=== PATIENT | female | born 1975 | race Caucasian/White ===

== ENCOUNTER → 2017-05-24 09:28 | Emergency (ER) | payer OTHER ==
[~2017-05-24 09:28] MED LIST: Iohexol 300* (CONTRAST) 10 ML SDV IV ONE
--- NOTE | 2017-05-24 11:38 | ED ---
Abdominal Pain/Female - HPI Summary HPI Summary: Pt here w/ upper ab pain. She's had epigastric pain for a while now suspected to be d/t chronic EE w/ very large ulceration recently ID'd on endoscopy exam with Dr. Drummond Thursday (see report for details). Report indicates pt had been taking NSAID's and these were d/c'd. She had been taking PPI but not treating EE so flovent was started. She also takes carafate. Feels these are helping epigastric pain however she's developed RUQ pain past 2 days - worse with drinking water but able to eat without difficulty (ie. pizza and salad last night). Nausea after endoscopy Thursday which she suspects was from medications for procedure - no nausea or vomiting since. Had a BM this morning - normal for her - no dark tarry stool, no hematochezia. NOTE: endoscopy report indicated oozing blood from ulcer. Bx taken - no results yet. Pt denies h/o anemia or abnormal bleeding. No known h/o IBS/IBD but brother has IBS. - History of Current Complaint Chief Complaint: EDAbdPain Stated Complaint: ABD PAIN Time Seen by Provider: 05/24/17 11:00 Hx Obtained From: Patient, Family/Fiberglass Insulation Installer - Hx Last Menstrual Period: pt states she no longer has periods Pain Intensity: 6 Allergies/Adverse Reactions: Allergies Allergy/AdvReac Type Severity Reaction Status Date / Time Penicillins Allergy Nausea Verified 05/24/17 09:39 Home Medications: Home Medications Fluticasone HFA 220 mcg(NF) [Flovent Hfa 220 Mcg(NF)] 4 puff INH BID 05/24/17 [ History Confirmed 05/24/17] Sucralfate SUSP (NF) [Carafate SUSP (NF)] 10 ml PO QID 05/24/17 [History Confirmed 05/24/17] PMH/Surg Hx/FS Hx/Imm Hx Previously Healthy: Yes Endocrine/Hematology History: Denies: Hx Anticoagulant Therapy, Hx Blood Disorders, Hx Diabetes, Hx Thyroid Disease Cardiovascular History: Denies: Hx Hypertension Respiratory History: Reports: Hx Asthma - allergy related Denies: Hx Chronic Obstructive Pulmonary Disease (COPD) GI History: Reports: Hx Gastroesophageal Reflux Disease, Hx Ulcer - esophagus, Other GI Disorders - Eosinophilic esophagitis Denies: Hx Cirrhosis, Hx Crohn's Disease, Hx Diverticulosis, Hx Gall Bladder Disease - Surgical History Surgery Procedure, Year, and Place: wisdom teeth Infectious Disease History: No Infectious Disease History: Denies: Hx Clostridium Difficile, Hx Hepatitis, Hx Human Immunodeficiency Virus (HIV), Hx of Known/Suspected MRSA, Hx Shingles, Hx Tuberculosis, Hx Known/ Suspected VRE, Hx Known/Suspected VRSA, History Other Infectious Disease, Traveled Outside the [place] in Last 30 Days - Family History Known Family History: Positive: None - Social History Alcohol Use: Weekly Alcohol Amount: couple of glasses a wine a week Substance Use Type: Reports: None Smoking Status (MU): Former Smoker Review of Systems Constitutional: Negative Negative: Fever, Chills, Fatigue ENT: Negative Negative: Sore Throat, Ear Ache, Nasal Discharge Cardiovascular: Negative Respiratory: Negative Negative: Shortness Of Breath, Cough Gastrointestinal: Other - see HPI Positive: no symptoms reported Musculoskeletal: Other - neck and back pain last week - lasted 4 days - took ibuprofen - pain gone now Skin: Negative Neurological: Negative Psychological: Normal All Other Systems Reviewed And Are Negative: Yes Physical Exam Triage Information Reviewed: Yes Vital Signs On Initial Exam: Initial Vitals Temp Pulse Resp BP Pulse Ox 97.5 F 75 14 124/73 99 05/24/17 09:37 05/24/17 09:37 05/24/17 09:37 05/24/17 09:37 05/24/17 09:37 Vital Signs Reviewed: Yes Appearance: Positive: Well-Appearing - lying on stretcher - appears mostly comfortable, Well-Nourished Skin: Positive: Warm, Dry - no jaundice Head/Face: Positive: Normal Head/Face Inspection Eyes: Positive: Normal, Conjunctiva Clear - anicteric sclera ENT: Positive: Hearing grossly normal, Pharynx normal - mucosa moist Respiratory/Lung Sounds: Positive: Clear to Auscultation, Breath Sounds Present. Negative: Rales, Rhonchi, Stridor, Wheezes Cardiovascular: Positive: Normal, RRR, S1, S2 Abdomen Description: Positive: No Organomegaly, Soft, McBurney's Point Tenderness, Other: - mild LUQ TTP, somewhat worse epigastric TTP - + RUQ TTP w/ Chen's sign. Negative: CVA Tenderness (R), CVA Tenderness (L), Distended, Guarding Bowel Sounds: Positive: Present Musculoskeletal: Positive: Normal, Strength/ROM Intact Neurological: Positive: Normal, Sensory/Motor Intact, Alert, Oriented to Person Place, Time, CN Intact II-III Psychiatric: Positive: Normal - concerned but calm and cooperative Diagnostics - Vital Signs Vital Signs Temp Pulse Resp BP Pulse Ox 05/24/17 10:30 75 106/68 97 05/24/17 10:02 70 96 05/24/17 10:00 100/70 05/24/17 09:37 97.5 F 75 14 124/73 99 - Laboratory Result Diagrams: 05/24/17 11:36 05/24/17 11:36 Lab Statement: Any lab studies that have been ordered have been reviewed, and results considered in the medical decision making process. Abdominal Pain Fem Course/Dx - Course Course Of Treatment: Spoke w/ Dr. Drummond after CT report returned along with labs - elevated LFT's w/o known cause - will check additional labs and U/S of liver, gallbladder. Labs and liver U/S are w/o acute pathology other than enlarged liver (20+ cm). Reviewed w/ Dr. Drummond. Although prevacid can cause adverse reaction of hepatic impairment, benefits outweight risks of continuing medication as ulcer is significant. Pt does report a 1 time dose of acetaminophen 650mg liquid which she took for Rt sided neck pain - wondering if this contributed as she never takes acetaminophen? Advised to avoid this here forth until cleared by GI. She will also drinks clears only for 24 hours and advance to soft foods only until cleared by GI. Will provide pain control w/ tramadol - pt requires liquid or powder form. Does not want to try here today - wants to try at home. Call tomorrow to schedule appt this week w/ GI - f/u labs at end of week. Return to ED if danger s/sx present - pt and agree w/ plan. - Diagnoses Provider Diagnoses: Hepatitis, Esophageal ulceration - Provider Notifications Discussed Care Of Patient With: Davin Drummond Discharge - Discharge Plan Condition: Stable Disposition: HOME Prescriptions: traMADol TAB* [Ultram*] 50 mg PO Q6HR PRN #20 tab MDD 4 PRN Reason: Pain Referrals: Davin Drummond MD [Medical Doctor] - Additional Instructions: You liver enzymes are elevated today - the cause of this is unknown however possible causes were discussed - prevacid, tylenol last week, autoimmune causes. It is important that you drink clears for the next 24 hours and soft foods until cleared by GI. Call tomorrow to schedule appointment this week. Continue all meds prescribed by GI unless instructed otherwise. *If you develop vomiting, diarrhea, fever, chest pain, back pain, shortness of breath, blood stools or dark/tarry stools, return to ED
[2017-05-24 11:57] LABS: Hematocrit 40 % (35-47); Hemoglobin 13.7 g/dl (12.0-16.0); Mean Corpuscular HGB Conc 34 g/dl (31-36); Mean Corpuscular Hemoglobin 30 pg (27-31); Mean Corpuscular Volume 86 fL (80-97); Mean Platelet Volume 9 um3 (7.4-10.4); Red Blood Count 4.64 10^6/ul (4.0-5.4); Red Cell Distribution Width 14 % (10.5-15); White Blood Count 11.6 10^3/ul (3.5-10.8)
[2017-05-24 12:00] LABS: Add Diff/Slide Review? Slide Review Added; Comments Flag Yes
[2017-05-24 12:14] LABS: Albumin 3.8 g/dL (3.2-5.2); Calcium 8.6 mg/dL (8.6-10.3); EGFR African American 112.4 (>60); EGFR Non-African American 87.4 (>60); Globulin 3.2 g/dL (2-4); Potassium 3.8 mmol/L (3.5-5.0); Total Bilirubin 0.6 mg/dL (0.2-1.0)
[2017-05-24 12:36] LABS: Neutrophil % 33 % (38-83); Reactive Lymph % 18 % (0-6)
[2017-05-24 12:37] LABS: Add Path Review? YES; EBV Response NO; RBC Morphology Normal (Normal)
[2017-05-24 12:40] LABS: Manual Entry Verification HAN0055
[2017-05-24 12:47] LABS: Mono Internal Control QC Line Present
--- NOTE | 2017-05-24 12:56 | RAD ---
CLINICAL HISTORY: Right upper quadrant pain, esophageal ulcer, status post endoscopy COMPARISON: None TECHNIQUE: Multiple contiguous axial CT scans were obtained of the abdomen and pelvis after the administration of intravenous contrast. Coronal and sagittal multiplanar reformations are submitted for review. Oral contrast was not administered. Delayed images were obtained through the abdomen and pelvis. FINDINGS: LUNG BASES: The lung bases are clear. LIVER: The liver is diffusely low in attenuation compared to the spleen. There are no focal hepatic parenchymal masses. Liver is at the upper limits of normal in size BILE DUCTS: There is no intrahepatic or extrahepatic biliary dilatation. GALLBLADDER: The gallbladder is normal, without pericholecystic inflammatory change. PANCREAS: The pancreas is normal, without mass or ductal dilatation. SPLEEN: The spleen is at the upper limits of normal in size. UPPER GI TRACT: Evaluation of the gastrointestinal tract is limited by incomplete gastric distention. The upper GI tract is unremarkable. SMALL BOWEL AND MESENTERY: The small bowel is normal in contour, course, and caliber. There is no obstruction or dilatation. COLON: The colon is normal in contour, course, caliber. There is no pericolonic inflammatory change. ADRENALS: Normal bilaterally. KIDNEYS: The kidneys are normal in shape, size, contour, and axis. There is no hydronephrosis or nephrolithiasis. BLADDER: The bladder is collapsed and is not well evaluated. PELVIC ORGANS: The uterus is not visualized consistent with previous cystectomy.. Bilateral ovaries are identified. There is a small amount of simple fluid within the pelvic cul-de-sac. AORTA: The aorta is normal. IVC: Unremarkable LYMPH NODES: There is no lymphadenopathy by size criteria. ABDOMINAL WALL: There is no evidence for abdominal wall hernia. BONES AND SOFT TISSUES: Unremarkable OTHER: None IMPRESSION: SMALL AMOUNT OF FLUID WITHIN THE PELVIC CUL-DE-SAC. OTHERWISE UNREMARKABLE CT OF THE ABDOMEN AND PELVIS.
[2017-05-24 14:07] LABS: Urine Bacteria Absent (Absent); Urine Bilirubin Negative (Negative); Urine Glucose Negative (Negative); Urine Nitrite Negative (Negative)
[2017-05-24 14:13] LABS: C Reactive Protein 6.18 mg/L (< 5.00)
--- NOTE | 2017-05-24 14:47 | RAD ---
HISTORY: Right upper quadrant pain, elevated LFTs COMPARISONS: CT dated May 24, 2017 TECHNIQUE: Multiple transverse and longitudinal ultrasound images were obtained of the right upper quadrant of the abdomen using grayscale and color Doppler imaging. FINDINGS: LIVER: The liver measures 20.5 cm in long axis. There is normal hepatopedal flow of the portal vein on Doppler imaging. BILIARY TREE: There is no intrahepatic or extrahepatic biliary dilatation. The common duct measures 0.4 cm. GALLBLADDER: The gallbladder is well-visualized. There is no cholelithiasis, gallbladder wall thickening, pericholecystic fluid, or sonographic Chen sign. PANCREAS: The head of the pancreas is unremarkable. The tail of the pancreas is not well visualized secondary to overlying bowel gas. RIGHT KIDNEY: The right kidney is normal in shape, size, contour, and echogenicity. There is no hydronephrosis or nephrolithiasis. The right kidney measures 11.1 x 5 x 4.3 cm. AORTA AND IVC: The aorta and IVC are unremarkable. FLUID: There are no pleural effusions. There is no free fluid within the hepatorenal recess. OTHER FINDINGS: None. IMPRESSION: HEPATOMEGALY. STATUS POST CHOLECYSTECTOMY.
[2017-05-24 16:24] VITALS: BP 101/74
== END | disposition home or self-care (01) ==
LOC: ED 09:28
DX: R10.13 Epigastric pain (principal); K75.9 Inflammatory liver disease, unspecified; K22.10 Ulcer of esophagus without bleeding
CPT/HCPCS: 36415; 74177; 76705; 80053; 80074; 81003; 81015; 82150; 83690; 85025; 85060; 85610; 85730; 86140; 86308; 86705; 86850; 86900; 86901; 99283; Q9967

== ENCOUNTER 2018-04-19 10:03 | Emergency (ER) | payer OTHER ==
[2018-04-19 10:12] VITALS: BP 131/78
--- NOTE | 2018-04-19 10:55 | UC ---
Minor Trauma HPI - HPI Summary HPI Summary: This pt is a 42 y/o female presenting to [facility] c/o bilateral knee pain since this morning s/p fall today at 08:00. Pt reports she was holding her 35 lbs 2 year old daughter when she tripped over a wire across the floor and fell. She subsequently fell on her knees hitting her knees on the floor and currently c/o L > R knee pain. She took Tylenol at 08:30 today and has used ice since fall with minimal relief. Denies head strike or LOC. No neck pain, chest pain, SOB, numbness or tingling in LE, hip pain. no h.o knee problems. no other injuries Allergic to Penicillin, has GI symptoms. Pt's tetanus shot is UTD. Pt has hx esophagus ulcer and can't take NSAIDs. Patients medication reviewed this visit. - History of Current Complaint Chief Complaint: UCLowerExtremity Stated Complaint: KNEE PAIN Time Seen by Provider: 04/19/18 10:52 Hx Obtained From: Patient Hx Last Menstrual Period: 2 wks ago Onset/Duration: Lasting Hours, Still Present Onset Of Pain: Immediate Severity Currently: Moderate Pain Intensity: 8 Pain Scale Used: 0-10 Numeric Mechanism Of Injury: Direct Blow, Fall From A Standing Position Aggravating Factor(s): Nothing Alleviating Factor(s): Nothing Associated Signs And Symptoms: Negative: Loss Of Consciousness, Swelling - Allergies/Home Medications Allergies/Adverse Reactions: Allergies Allergy/AdvReac Type Severity Reaction Status Date / Time Penicillins Allergy Nausea Verified 04/19/18 10:13 PMH/Surg Hx/FS Hx/Imm Hx - Additional Past Medical History Additional PMH: PMHx: esophagus ulcer Previously Healthy: Yes Other Endocrine History: DENIES: diabetes Other Cardiovascular History: DENIES: HTN Respiratory History: Asthma Other History Of: Negative For: Anticoagulant Therapy - Surgical History Surgical History: Yes Surgery Procedure, Year, and Place: wisdom teeth - Family History Known Family History: Negative: Cardiac Disease - Social History Alcohol Use: Weekly Alcohol Amount: couple of glasses a wine a week Substance Use Type: None Smoking Status (MU): Former Smoker When Did the Patient Quit Smoking/Using Tobacco: 6 yrs ago Review of Systems Constitutional: Negative Skin: Bruising, Other - abraison b/l knee, Eyes: Negative ENT: Negative Respiratory: Negative Cardiovascular: Negative Gastrointestinal: Negative Genitourinary: Negative Motor: Negative Neurovascular: Negative Musculoskeletal: Other: - POS: bilateral knee pain Neurological: Negative Psychological: Negative All Other Systems Reviewed And Are Negative: Yes Physical Exam - Summary Physical Exam Summary: Vital Signs Reviewed: Yes A+Ox3, no distress Eyes: Conjunctiva Clear ENT: Hearing grossly normal neck: supple Respiratory: Positive: No respiratory distress, No accessory muscle use Cardiovascular: skin color reflect adequate perfusion 2+ PT b/l Musculoskeletal Exam: no pain c/t/l/s + SLE b/l + pain left knee with SLE + TTP prox tibial left knee with direct palp. no crepitus + Flex/ext ankle + ecchymosis prox lateral tibia, lateral knee RLE; + flex/ext knee, ankle + ecchymosis medial aspect of patella no crepitus mild focal discomfort lateral patella no pain ankle. foot Neurological: Positive: Alert, ambulatory without difficulty Psychological: Positive: Normal Response To Family Skin: Positive: no rash, ecchymosis b/l legs as described above. non suturable abraison b/l patella and dorsum left foot no bleeding Triage Information Reviewed: Yes Vital Signs: Initial Vital Signs Temp 97.4 F 04/19/18 10:10 Pulse 72 04/19/18 10:10 Resp 18 04/19/18 10:10 BP 131/78 04/19/18 10:10 Pulse Ox 100 04/19/18 10:10 Diagnostics - Radiology Bilateral knee XR Xray Interpretation: No Acute Changes - IMPRESSION: No fracture or joint effusion is noted. There may be superficial soft tissue swelling superficial to the patella of the left knee. Dr. Griffin has reviewed this radiology report. Radiology Interpretation Completed By: Radiologist Re-Evaluation - Re-Evaluation First Eval Change: Improved - Pt states pain inproved with gen reviewed imaging wound care ice crutches APAP/T+C - precautions discussed thoroughly referral to orthopedics pt comfortable in agreement with plan has a ride Minor Trauma Course/Dx - Course Course Of Treatment: Patient was carrying her infant when she tripped over wire proximal and o'clock this morning. Patient with ecchymosis to both knees. Patient left knee worse than right. Patient left knee pain with palpation proximal tibia lateral aspect of the knee. Patient with mild discomfort medial aspect of right knee. Patient took Tylenol. Patient unable to take NSAIDs due to this esophageal irritation we'll apply ice. Check imaging. Reassess. Patient comfortable and agreement with plan. - Differential Dx/Diagnosis Provider Diagnoses: abraison. knee contusion. knee pain Discharge - Sign-Out/Discharge Documenting (check all that apply): Patient Departure - Discharge All imaging exams completed and their final reports reviewed: Yes - Discharge Plan Condition: Stable Disposition: HOME Prescriptions: Acetaminoph/Cod 120/12 mg LIQ* [Tylenol/Codeine 120/12 LIQ*] 10 ml PO Q6HR #50 ml MDD 40 Patient Education Materials: Abrasion (ED), Knee Pain (ED) Referrals: Forrest Fernandes MD [Medical Doctor] - (call tomorrow for a follow-up appointment this week) Tuan Rolon MD [Primary Care Provider] - Additional Instructions: -wear gen wrap for comfort and support -apply ice (20 min at a time) every 2-3 hours for the next 2 days -use crutches until you can walk normally without a limp -Elevate your leg - this will help with swelling and pain - Take Tylenol product (Tylenol or tylenol with codeine) every 6-8 hours for pain. Codeine is a narcotic. Do NOT drive, operate machinery, drink alcohol or primary child welfare counselor responsibility while taking codeine - okay to clean wounds with warm, soapy water daily -Contact the orthopedic provider to schedule a follow-up appointment next week. Contact your doctor or return with questions or concerns - Billing Disposition and Condition Condition: STABLE Disposition: Home - Attestation Statements Document Initiated by Garimaibe: Yes Documenting Scribe: Eugenie Arce Provider For Whom Jimenez is Documenting (Include Credential): Yaritza Griffin MD Scribe Attestation: Eugenie Hess, scribed for Yaritza Griffin MD on 04/19/18 at 1318. Scribe Documentation Reviewed: Yes Provider Attestation: The documentation as recorded by the Eugenie macias accurately reflects the service I personally performed and the decisions made by me, Yaritza Griffin MD
--- NOTE | 2018-04-19 12:42 | RAD ---
Indication: Fall, bilateral knee pain. AP standing view of both knees, lateral, patellofemoral and tunnel views of both knees demonstrate no fracture. No joint effusion is noted in either knee. Joint spaces all well-preserved. There may be some soft tissue swelling superficial to the patella in the left knee. IMPRESSION: No fracture or joint effusion is noted. There may be superficial soft tissue swelling superficial to the patella of the left knee.
== END 2018-04-19 12:50 | disposition home or self-care (01) ==
LOC: UCEAST 10:03
DX: S80.02XA Contusion of left knee, initial encounter (principal); S80.01XA Contusion of right knee, initial encounter; S80.212A Abrasion, left knee, initial encounter; S80.211A Abrasion, right knee, initial encounter; W01.0XXA Fall on same level from slipping, tripping and stumbling without subsequent striking against object, initial encounter; Y93.9 Activity, unspecified; Y92.9 Unspecified place or not applicable; M25.562 Pain in left knee; M25.561 Pain in right knee; Z88.0 Allergy status to penicillin; Z87.891 Personal history of nicotine dependence
CPT/HCPCS: 99213; G0463

== ENCOUNTER 2019-07-29 21:30 | Observation (INO) | payer OTHER ==
[2019-07-29] MEDS ORDERED: NS 0.9% 1000 ML** 1,000 ML IV ONE (21:48)
[2019-07-29] MEDS ORDERED: Morphine 4 MG/ML VIAL (1 ml) 4 MG/ML VIAL IV PRN (21:49)
[2019-07-29] MEDS ORDERED: Morphine 4 MG/ML VIAL (1 ml) 4 MG/ML VIAL IV ONE (21:49)
[2019-07-29] MEDS ORDERED: Ketorolac INJ* 30 MG/ML 1 ML VIAL IV PUSH ONE (21:49)
[2019-07-29] MEDS ORDERED: Ondansetron INJ* 2 MG/ML VIAL IV ONE (21:49)
--- NOTE | 2019-07-29 22:04 | ED ---
GI/ HPI - HPI Summary HPI Summary: Patient is a 44 y/o F w/ Hx of stomach ulcer presenting to [facility] with complaints of abdominal pain and N/V. Sx onset 07/28/19 evening and exacerbated the evening of 07/29/19 at around 1900 after dinner. Upon coming to ED, patient began to experience N/V. Pain has been constant. Initial pain is described as a discomfort. 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 Patient is followed by Dr. Drummond. She reports that she has received two upper GI endoscopies, which revealed stomach ulcer. Patient was placed on carafate and prilosec. She has had H.pylori testing done that was negative. Patient states that this current presentation of pain is similar to past episodes but notes that this is the first time the pain has been so severe. Home medications and allergies are reviewed. - History of Current Complaint Chief Complaint: EDAbdPain Time Seen by Provider: 07/29/19 21:42 Stated Complaint: ABD PAIN PER Hx Obtained From: Patient Hx Last Menstrual Period: 2 wks ago Onset/Duration: Started Hours Ago, Still Present Timing: Constant, Lasting Hours Severity: Severe Current Severity: Severe Pain Intensity: 10 Associated Signs and Symptoms: Positive: Nausea, Vomiting, Abdominal Pain - Allergy/Home Medications Allergies/Adverse Reactions: Allergies Allergy/AdvReac Type Severity Reaction Status Date / Time Penicillins Allergy Nausea Verified 07/29/19 22:13 PMH/Surg Hx/FS Hx/Imm Hx Endocrine/Hematology History: Denies: Hx Anticoagulant Therapy, Hx Blood Disorders, Hx Diabetes, Hx Thyroid Disease Cardiovascular History: Denies: Hx Hypertension, Hx Pacemaker/ICD Respiratory History: Reports: Hx Asthma - allergy related Denies: Hx Chronic Obstructive Pulmonary Disease (COPD) GI History: Reports: Hx Gastroesophageal Reflux Disease, Hx Ulcer - esophagus, Other GI Disorders - Eosinophilic esophagitis Denies: Hx Cirrhosis, Hx Crohn's Disease, Hx Diverticulosis, Hx Gall Bladder Disease History: Denies: Hx Dialysis, Hx Renal Disease Sensory History: Denies: Hx Hearing Aid Psychiatric History: Denies: Hx Panic Disorder - Surgical History Surgery Procedure, Year, and Place: WISDOM TEETH ;. ENDOSCOPY (NO POLYPS) ; Infectious Disease History: No Infectious Disease History: Denies: Hx Clostridium Difficile, Hx Hepatitis, Hx Human Immunodeficiency Virus (HIV), Hx of Known/Suspected MRSA, Hx Shingles, Hx Tuberculosis, Hx Known/ Suspected VRE, Hx Known/Suspected VRSA, History Other Infectious Disease, Traveled Outside the [place] in Last 30 Days - Family History Known Family History: Negative: Cardiac Disease - Social History Alcohol Use: Weekly Alcohol Amount: couple of glasses a wine a week Substance Use Type: Reports: None Smoking Status (MU): Former Smoker Review of Systems Negative: Fever - on vitals, temp is 98.3 F Positive: Abdominal Pain, Vomiting, Nausea All Other Systems Reviewed And Are Negative: Yes Physical Exam - Summary Physical Exam Summary: Appearance: Well-appearing, Well-nourished, in obvious discomfort, appears colicky. Skin: Warm, dry, no obvious rash Eyes: sclera anicteric, no conjunctival pallor ENT: mucous membranes moist, pharynx appears normal Neck: Supple, nontender Respiratory: Clear to auscultation, no signs of respiratory distress Cardiovascular: Normal S1, S2. No murmurs. Normal distal pulses in tibial and radial bilaterally. Abdomen: Soft, focal tenderness at RUQ towards epigastrium with some guarding, normal active bowel sounds present Musculoskeletal: Normal, Strength/ROM Intact Neurological: A&Ox3, awake and alert, mentation is normal, speech is fluent and appropriate Psychiatric: affect is normal, does not appear anxious or depressed Triage Information Reviewed: Yes Vital Signs On Initial Exam: Initial Vitals Temp Pulse Resp BP Pulse Ox 98.3 F 86 22 136/87 97 07/29/19 21:32 07/29/19 21:32 07/29/19 21:32 07/29/19 21:32 07/29/19 21:32 Vital Signs Reviewed: Yes Diagnostics - Vital Signs Vital Signs Temp Pulse Resp BP Pulse Ox 07/29/19 21:32 98.3 F 86 22 136/87 97 - Laboratory Result Diagrams: 07/30/19 05:07 07/30/19 05:08 Lab Statement: Any lab studies that have been ordered have been reviewed, and results considered in the medical decision making process. - CT CT ABD/PEL CT Interpretation Completed By: Radiologist Summary of CT Findings: IMPRESSION: 1. Mild hepatomegaly. 2. Slight pericholecystic induration which may reflect cholecystitis. No. gallstones are seen by CT. 3. Status post hysterectomy. 4. Otherwise negative CT abdomen/ pelvis. The stomach is within normal limits. and there is no free air. THIS REPORT WAS REVIEWED BY ED PHYSICIAN. - Ultrasound GALLBLADDER US Ultrasound Interpretation Completed By: Radiologist Summary of Ultrasound Findings: GALLBLADDER US IMPRESSION: 1. Mild hepatomegaly. 2. Borderline distended gallbladder with no gallstones and no wall thickening. 3. Otherwise negative right upper quadrant sonogram. No right hydronephrosis. THIS REPORT WAS REVIEWED BY ED PHYSICIAN. Re-Evaluation - Re-Evaluation First Eval Re-Evaluation Time: 11:53 Change: Improved Comment: Pain is improved, patient rates her pain 3/10 currently and characaterizes it as a discomfort. GIGU Course/Dx - Course Course Of Treatment: Patient is a 44 y/o F w/ Hx of stomach ulcer presenting to [facility] with complaints of abdominal pain and N/V. Sx onset 07/28/19 evening and exacerbated the evening of 07/29/19 at around 1900 after dinner. Upon coming to ED, patient began to experience N/V. Pain has been constant. Initial pain is described as a discomfort. 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 On exam, patient noted to be in obvious discomfort and colicky in appearance. There is focal tenderness at RUQ towards epigastrium with some guarding. Bloodwork was obtained and within normal limits with exception of WBC 16.1, absolute neuts 12.2, absolute monos 1.1, glucose 122, AST 46. UA showed 1+ ketones, 2+ blood, 2+ RBC, squamous epith cells. During ED course, patient received fluids, Zofran 8 mg IV , morphine 4 mg IV, toradol 10 mg IV. GALLBLADDER US IMPRESSION: 1. Mild hepatomegaly. 2. Borderline distended gallbladder with no gallstones and no wall thickening. 3. Otherwise negative right upper quadrant sonogram. No right hydronephrosis. CT ABD/PEL IMPRESSION: 1. Mild hepatomegaly. 2. Slight pericholecystic induration which may reflect cholecystitis. No. gallstones are seen by CT. 3. Status post hysterectomy. 4. Otherwise negative CT abdomen/ pelvis. The stomach is within normal limits. and there is no free air. 0252 - Patient's case was discussed with Dr. Oconnell. Hospitalist to be consulted. 0255 - Patient's case was dicussed with Dr. Gibson, Dr. Gibson accepts for admission. - Diagnoses Provider Diagnoses: Biliary colic, Right upper quadrant abdominal pain - Physician Notifications Discussed Care Of Patient With: Qamar Oconnell Time Discussed With Above Provider: 02:52 Instructed by Provider To: Other - 0252 - Patient's case was discussed with Dr. Oconnell. Hospitalist to be consulted. 0255 - Patient's case was dicussed with Dr. Gibson, Dr. Gibson accepts for admission. Discharge ED - Sign-Out/Discharge Documenting (check all that apply): Patient Departure - admit - Discharge Plan Condition: Improved Disposition: ADMITTED TO [facility] - Billing Disposition and Condition Condition: IMPROVED Disposition: Admitted to [facility] - Attestation Statements Document Initiated by Jimenez: Yes Documenting Scribe: TEJINDER YU Provider For Whom Jimenez is Documenting (Include Credential): VICK RUIZ MD Scribe Attestation: ITEJINDER, scribed for VICK RUIZ MD on 07/30/19 at 1907. Scribe Documentation Reviewed: Yes Provider Attestation: The documentation as recorded by the TEJINDER macias accurately reflects the service I personally performed and the decisions made by me, VICK RUIZ MD Status of Scribmaria victoria Document: Viewed
--- OUTSIDE RECORDS SUMMARY | 2019-07-29 22:05 | XMS REPORT | Continuity of Care Document ---
:1975 External Reference #:[id number] Author Name Tuan Rolon MD Address [address] [place] [address] Care Team Providers Name Role Phone Tuan Rolon MD FACP - Care Team Information [employer] [phone] Internal Medicine Davin Drummond MD - Care Team Information [employer] [phone] Gastroenterology Melani Lechuga MD - Obstetrics & Care Team Information [employer] [phone] Gynecology Problems Active Problems Provider Date Vitamin D deficiency Tuan Rolon MD Onset: 07/20/2018 Gastro-esophageal reflux disease with Tuan Rolon MD Onset: 02/02/2018 esophagitis Gastro-esophageal reflux disease with Tuan Rolon MD Onset: 06/22/2017 esophagitis Mild intermittent asthma Tuan Rolon MD Onset: 05/13/2017 Dysphagia Tuan Rolon MD Onset: 05/13/2017 Social History Type Date Description Comments Sex Unknown ETOH Use consumes 2-3 glasses of wine per week Tobacco Use Start: Unknown End: Patient is a former 1/2 PPD for 12 years smoker Exercise Does not exercise Type/Frequency Allergies, Adverse Reactions, Alerts Active Allergies Reaction Severity Comments Date Penicillin Nausea and Vomiting 05/05/2017 Medications Active Medications SIG Qnty Indications Ordering Date Provider Vitamin D3 2 chewables by mouth E55.9 Dickerson A 07/21/2019 1000Unit every day MD Gonzales Tablets Ventolin HFA take 2 puffs every 4 16gm R05 Dickerson A 08/17/1996 hours as needed for MD Gonzales 108(90Base) mcg/Act bronchospasm Aerosol Immunizations CPT Code Status Date Vaccine Lot # [id number] Given 06/14/2019 Influenza Vaccine Quadrivalent Preser/Antibiotic [id number] Free Im Use 53731 Given 05/14/2018 Influenza Virus Vaccine, Quadrivalent (Cciiv4), [id number] Derived From Cell 04642 Given 05/13/2017 Influenza Vaccine Quadrivalent Preser/Antibiotic [id number] Free Im Use 27562 Given 08/17/2011 Tdap-Tetanus, Diphtheria Toxoids/Acellular Pertussis Vaccine 7+ Vital Signs Date Vital Result Comment 07/21/2019 10:14am Body Temperature 98.9 F O2 % BldC Oximetry 99 % Heart Rate 82 /min BP Systolic 115 mmHg BP Diastolic 75 mmHg BMI (Body Mass Index) 31.5 kg/m2 Weight 172.00 lb Height 62 inches 5'2" 07/20/2018 9:31am Body Temperature 99.1 F O2 % BldC Oximetry 99 % Heart Rate 77 /min BP Systolic 100 mmHg BP Diastolic 75 mmHg BMI (Body Mass Index) 29.6 kg/m2 Weight 166.00 lb Height 62.75 inches 5'2.75" Results Description No Information Available Procedures Description No Information Available Medical Devices Description No Information Available Encounters Description No Information Available Assessments Date Code Description Provider 07/21/2019 Z00.01 Encounter for general adult medical Tuan Rolon MD examination with abnormal findings 07/21/2019 Z12.4 Encounter for screening for malignant Tuan Rolon MD neoplasm of cervix 07/21/2019 E55.9 Vitamin D deficiency, unspecified Tuan Rolon MD 06/14/2019 Z23 Encounter for immunization Tuan Rolon MD Plan of Treatment Future Appointment(s):07/23/2020 10:00 am - Tuan Rolon MD [facility]/21/2019 - Tuan Rolon MDZ00.01 Encounter for general adult medical examination with abnormal findingsComments:Normal physical examination for age. Age, sex and risk appropriate preventive care recommendations discussed with patient. Patient verbalized understanding. Lifestyle and dietary modifications advised. She has gained 16 lbs in past 3 years and was advised to change lifestyle and lose weight.Z12.4 Encounter for screening for malignant neoplasm of cervixComments:She is over due and she declined to have PAP.Advised to consult with [facility] OPERATOR. Referral order provided and she will decide in this regard.Referral:Melani Lechuga MD, vision rehabilitation therapist/Phys/KwncmO42.9 Vitamin D deficiency, unspecifiedNew Medication:Vitamin D3 1000 Unit - 2 chewables by mouth every dayComments:Educated with concerns.Lifestyle and dietary modifications advised. Medications related potential side effects, general precautions, follow up recommendations discussed with patient in detail. Patientverbalized understanding. Functional Status Description No Information Available Mental Status Description No Information Available Referrals Refer to Reason for Referral Status Appt Date Melani Lechuga MD Created [address] [place] [address] [phone]
[2019-07-29 22:07] LABS: ABS Basophils 0.1 10^3/ul (0-0.2); ABS Eosinophils 0.2 10^3/ul (0-0.6); ABS Lymphocytes 2.4 10^3/ul (1.0-4.8); ABS Monocytes 1.1 10^3/ul (0-0.8); ABS Neutrophils 12.2 10^3/ul (1.5-7.7); Eosinophil % 1.5 %; Hematocrit 38 % (35-47); Hemoglobin 13.1 g/dL (12.0-16.0); Lymphocyte % 15.2 %; Mean Corpuscular HGB Conc 34 g/dL (31-36); Mean Corpuscular Hemoglobin 30 pg (27-31); Mean Corpuscular Volume 88 fL (80-97); Mean Platelet Volume 9.2 fL (7.4-10.4); Platelet Count 271 10^3/uL (150-450); Red Blood Count 4.31 10^6 /uL (3.70-4.87); Red Cell Distribution Width 14 % (10-15); White Blood Count 16.1 10^3/uL (3.5-10.8)
[2019-07-29 22:24] LABS: ALT 25 U/L (7-52); AST 46 U/L (13-39); Albumin 4.2 g/dL (3.2-5.2); Albumin/Globulin Ratio 1.5 (1-3); Alkaline Phosphatase 60 U/L (34-104); Anion Gap 7 mmol/L (2-11); BUN/Creatinine Ratio 15.3 (8-20); Blood Urea Nitrogen 11 mg/dL (6-24); CO2 Carbon Dioxide 24 mmol/L (22-32); Calcium 9.2 mg/dL (8.6-10.3); Chloride 106 mmol/L (101-111); EGFR Non-African American 87.6 (>60); Globulin 2.8 g/dL (2-4); Glucose 122 mg/dL (70-100); Potassium 3.6 mmol/L (3.5-5.0); Sodium 137 mmol/L (135-145)
[2019-07-29 22:30] LABS: HCG Pregnancy < 0.60 mIU/mL
[2019-07-30 00:24] LABS: Urine Appearance Clear; Urine Bilirubin Negative (Negative); Urine Blood 2+ (Negative); Urine Color Yellow; Urine Glucose Negative (Negative); Urine Ketones 1+ (Negative); Urine Nitrite Negative (Negative); Urine Protein Negative (Negative); Urine Specific Gravity 1.016 (1.010-1.030); Urine Urobilinogen Negative (Negative)
[2019-07-30 00:26] LABS: Urine Bacteria Absent (Absent); Urine Red Blood Cell 2+(6-10/hpf) (Absent); Urine Squamous Epithelial Cell Present (Absent); Urine White Blood Cell Trace(0-5/hpf) (Absent)
[2019-07-30] MEDS ORDERED: Iohexol 300* (CONTRAST) 10 ML SDV IV ONE (00:48)
[2019-07-30] MEDS ORDERED: Morphine INJ* 2 MG/ML 1 ML SYRINGE (TWO MG - NEW SYRINGE VERSION) IV PRN (03:43)
[2019-07-30] MEDS ORDERED: NS 0.9% 1000 ML** 1,000 ML IV SCH (03:45)
[2019-07-30] MEDS ORDERED: Albuterol HFA INHALER* 8 gm MDI INH PRN (03:46)
[2019-07-30] MEDS ORDERED: Morphine INJ* 4 MG/ML 1 ML SYRINGE (NEW SYRINGE VERSION) IV PRN (04:18)
[2019-07-30] MEDS: Heparin VIAL(*) 5000 UNITS/ML VIAL (FIVE THOUSAND) SUBCUT SCH ×2 (05:10→13:17)
[2019-07-30 05:34] LABS: Albumin 3.7 g/dL (3.2-5.2); Albumin/Globulin Ratio 1.5 (1-3); BUN/Creatinine Ratio 11.9 (8-20); Calcium 8.4 mg/dL (8.6-10.3); EGFR African American 115.2 (>60); EGFR Non-African American 95.2 (>60); Globulin 2.5 g/dL (2-4); Potassium 3.8 mmol/L (3.5-5.0); Total Bilirubin 0.8 mg/dL (0.2-1.0); Total Protein 6.2 g/dL (6.4-8.9)
--- NOTE | 2019-07-30 07:30 | ADMNOTE ---
Subjective Interval History: 44 yo female with hx of peptic ulcers came in the hospital with complaints of RUQ pain which started after dinner last night. Pain progressed to the point she couldnt bear it and came to the ED. She had 1 episode of vomiting when she made it to the ER. Her vitals were stable. US was done which showed a slightly enlarged gallbladder but no stones. She had a CT abdomen which showed perichole induration concerning for cholecystitis. Pt has a hx of peptic ulcer disease that she had 2 endoscopies for which had revealed large ulcers. She said she was never told what caused these ulcers. 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 She see Dr. Drummond outpatient. She was recently put back on PPI because a few weeks ago, she was beginning to have some epigastric discomfort. Family History: Unchanged from Admission Social History: Unchanged from Admission Past Medical History: Unchanged from Admission Review of Systems - Measurements Intake and Output: Intake and Output Last 24 Hours 07/28/19 07/29/19 07/30/19 07/31/19 06:59 06:59 06:59 06:59 Intake Total 1000 Balance 1000 Weight 172 lb 6.4 oz Intake: IV Fluids 1000 Oral 0 Other: Estimated Void Medium # Voids 1 - Review of Systems Constitutional Symptoms: Negative: Weight Gain, Weight Loss, Weakness, Fatigue, Fever, Night Sweats, Unexplained Falls, Other Dermatology: Negative: Normal, Rash, Skin Lesions, Cancer, Skin Lumps, Other HEENT: Negative: Normal, Change in Hearing, Vertigo, Dental Problems, Tinnitus, Sinus Problem, Other Eyes: Negative: Normal, Change in Vision, Double Vision, Eye Pain, Glaucoma, Cataract, Contacts or Glasses, Other Thyroid: Negative: Normal, Goiter, Thyroid Nodule, Cold Intolerance, Heat Intolerance , Sweatiness, Tremor, Frequent Defecation, Constipation, Palpitations, Primary Hypothyroidism, Primary Hyperthyroidism, Weight Loss, Weight Gain, Change in Skin/Hair, Change in Menstruation, Radiation Exposure, Other Pulmonary: Negative: Normal, Cough, Sputum, Hemoptysis, Wheezing, Respiratory Distress, Shortness of Breath, COPD, Asthma, Exercise Intolerance, Home Oxygen, Other Cardiology: Negative: Normal, Chest Pain, Shortness of Breath, Palpitations, Swelling of Ankles, Peripheral Vascular Dis, Edema, Faintness, Syncope, Claudication, Proximal NocturnalDyspnea, Orthopnoea, Other Gastroenterology: Positive: Abdominal Pain, Nausea, Vomiting Negative: Normal, Anorexia, Indigestion, Difficulty Swallowing, Heartburn, Constipation, Diarrhea, Blood in Stools, Change in Bowel Habits, Haematemesis, Melena, Other Genital - Urinary: Negative: Normal, Dysuria, Hematuria, Polyuria, Nocturia, Other Genitourinay - Female: Negative: Menses Normal, Vaginal Discharge, Menopause, Dysmenorrhea, Other Musculoskeletal: Negative: Joint Pain, Joint Stiffness, Arthritis, Osteoporosis, Low Back Pain , Sciatica, Joint Deformities, Kyphoscoliosis, Other Endocrinology: Negative: Normal, Thyroid Problems, Adrenal Problems, Gonadal Problems, Family Hx Endocrine Disorders, Obesity, Diabetes Mellitus, Hyperglycemia, Hx Hypoglycemia, Diabetic Foot Ulcers, Calluses, Hirsutism, Menstrual Abnormalities , Polydipsia, Polyuria, Gonadal Problems, Gynecomastia, Pituitary disease, Other Hematologic/Lymphatic: Negative: Anemia, Easy Bruising, Hx Leukemia, Hx Lymphoma, Use of Anticoagulant, Use of Antiplatelet Drugs, Other Neurology: Negative: Normal, Headache, Migraines, Change in Vision, Diplopia, Dizziness , Change in Balancing, Change in Coordination, Change in Memory, Change in Speech, Change in Sphincter Function, Change in Walking, Numbness\Paresthesiae, Unexplained Weakness, Hx of Stroke\TIA, Hx of Seizures, Other Psychiatry: Negative: Normal, Depression, Anxiety, Depressed Mood, Anhedonia, Sexual Dysfunction, Weight Change, Guilt Feelings, Tearfulness, Unusual Fatigue, Unusual Anxiety, Suicidal Ideation, Hypomania, Eating Disorders, Other Allergic/Immunologic: Negative: Hx Anaphylaxis, Hx Angioedema, Hx Environmental, Hx Seasonal, Asthma, Hx HIV, Immunocompromise, Swollen Glands LymphNodes, Other Objective Active Medications: Albuterol (Ventolin Hfa Inhaler*) 2 puff INH Q4H PRN PRN Reason: SOB/WHEEZING Heparin Sodium (Porcine) (Heparin Vial(*)) 5,000 units SUBCUT Q8HR [facility] Last Admin: 07/30/19 05:10 Dose: Not Given Sodium Chloride (Ns 0.9% 1000 Ml) 1,000 mls @ 75 mls/hr IV PER RATE [facility] Last Admin: 07/30/19 05:11 Dose: 75 mls/hr Lansoprazole (Prevacid Solutab*) 30 mg PO DAILY [facility] Morphine Sulfate (Morphine Inj (Syringe))*) 2 mg IV Q4H PRN PRN Reason: PAIN - MILD Morphine Sulfate (Morphine Inj (Syringe)*) 4 mg IV Q1H PRN PRN Reason: PAIN - MODERATE Vital Signs - 8 hr 07/29/19 07/30/19 07/30/19 23:51 00:00 00:20 Temperature Pulse Rate 85 93 77 Respiratory Rate Blood Pressure 101/54 115/63 (mmHg) O2 Sat by Pulse 97 96 96 Oximetry 07/30/19 07/30/19 07/30/19 00:31 00:50 01:18 Temperature Pulse Rate 82 72 82 Respiratory Rate Blood Pressure 107/72 (mmHg) O2 Sat by Pulse 97 96 96 Oximetry 07/30/19 07/30/19 07/30/19 01:21 01:50 02:00 Temperature Pulse Rate 82 76 72 Respiratory Rate Blood Pressure 114/70 104/56 (mmHg) O2 Sat by Pulse 97 96 96 Oximetry 07/30/19 07/30/19 07/30/19 02:20 02:51 03:00 Temperature Pulse Rate 76 82 74 Respiratory Rate Blood Pressure 104/54 106/73 (mmHg) O2 Sat by Pulse 97 97 97 Oximetry 07/30/19 07/30/19 07/30/19 03:21 03:51 04:00 Temperature Pulse Rate 73 79 69 Respiratory Rate Blood Pressure 100/55 124/87 (mmHg) O2 Sat by Pulse 96 97 96 Oximetry 07/30/19 07/30/19 07/30/19 04:21 05:17 05:24 Temperature 97.8 F Pulse Rate 69 65 Respiratory 16 16 Rate Blood Pressure 106/69 102/59 (mmHg) O2 Sat by Pulse 96 97 Oximetry 07/30/19 05:25 Temperature 98.5 F Pulse Rate 69 Respiratory 16 Rate Blood Pressure 106/69 (mmHg) O2 Sat by Pulse 96 Oximetry Oxygen Devices in Use Now: None Appearance: not in distress Eyes: No Scleral Icterus, PERRLA Ears/Nose/Mouth/Throat: Mucous Membranes Moist Neck: NL Appearance and Movements; NL JVP, Trachea Midline Respiratory: Symmetrical Chest Expansion and Respiratory Effort, Clear to Auscultation, Clear to Percussion Cardiovascular: NL Sounds; No Murmurs; No JVD Abdominal: NL Sounds; No Tenderness; No Distention Extremities: No Edema Skin: No Rash or Ulcers, No Nodules or Sclerosis Neurological: Alert and Oriented x 3 Result Diagrams: 07/29/19 22:01 07/30/19 05:08 Assess/Plan/Problems-Billing Assessment: - Patient Problems (1) Right upper quadrant abdominal pain Current Visit: Yes Status: Acute Code(s): R10.11 - RIGHT UPPER QUADRANT PAIN SNOMED Code(s): 681863864 Comment: RUQ pain that clinically is concerning for either biliary colic or cholecystitis. US and CT abdomen not definitive Will get a HIDA scan team to consider calling GI (2) Full code status Current Visit: Yes Status: Acute Code(s): Z78.9 - OTHER SPECIFIED HEALTH STATUS SNOMED Code(s): 001718408 (3) DVT prophylaxis Current Visit: Yes Status: Acute Code(s): Z29.9 - ENCOUNTER FOR PROPHYLACTIC MEASURES, UNSPECIFIED SNOMED Code(s): 970875788 Comment: heparin (4) Peptic ulcer disease Current Visit: Yes Status: Acute Code(s): K27.9 - PEPTIC ULC, SITE UNSP, UNSP AC OR CHR, W/O HEMOR OR PERF SNOMED Code(s): 53603511 Comment: cont home PPI
[2019-07-30 08:59] LABS: ABS Basophils 0.1 10^3/ul (0-0.2); ABS Eosinophils 0.1 10^3/ul (0-0.6); ABS Lymphocytes 2.7 10^3/ul (1.0-4.8); ABS Monocytes 0.9 10^3/ul (0-0.8); ABS Neutrophils 9.9 10^3/ul (1.5-7.7); Eosinophil % 0.6 %; Hematocrit 35 % (35-47); Hemoglobin 12.2 g/dL (12.0-16.0); Lymphocyte % 19.6 %; Mean Corpuscular HGB Conc 34 g/dL (31-36); Mean Corpuscular Hemoglobin 30 pg (27-31); Mean Corpuscular Volume 89 fL (80-97); Platelet Count 262 10^3/uL (150-450); Red Cell Distribution Width 13 % (10-15); White Blood Count 13.6 10^3/uL (3.5-10.8)
[2019-07-30] MEDS ORDERED: Lansoprazole SOLUTAB* 30 MG PO SCH ×2 (09:00→21:00)
[2019-07-30] MEDS ORDERED: HYDROmorphone INJ* 0.5 MG/0.5 ML SYRINGE IV SLOW PU PRN (11:13)
[2019-07-30] MEDS ORDERED: Acetaminophen ADULT LIQ* 650 MG/20.3 ML UDC PO PRN (13:13)
--- NOTE | 2019-07-30 13:59 | PN ---
Subjective Date of Service: 07/30/19 Interval History: HD 2 on 07/30 44 y/o F with history of PUD presents with acute abdominal pain and vomiting. Found to have epigastric and RUQ tenderness, leucocytosis and mild AST elevation. Imaging negative for cholelithiasis; Ct shows mild cholecystitis. D/D - CHolecystitis, PUD, GERD No acute overnight events vitals stable; mild fever this morning patient was sitting comfortably in bed and was eager in going home. She denies abdominal pain, nausea and vomiting at present She says she would like to drink some water. Patient educated about ongoing medical issues and patient seems to understand Objective Active Medications: Acetaminophen (Tylenol Adult Liq*) 650 mg PO Q6H PRN PRN Reason: MILD PAIN or TEMP > 100.4 Last Admin: 07/30/19 13:20 Dose: 650 mg Albuterol (Ventolin Hfa Inhaler*) 2 puff INH Q4H PRN PRN Reason: SOB/WHEEZING Heparin Sodium (Porcine) (Heparin Vial(*)) 5,000 units SUBCUT Q8HR [facility] Last Admin: 07/30/19 13:17 Dose: Not Given Hydromorphone HCl (Dilaudid Inj*) 0.5 mg IV SLOW PU Q4H PRN PRN Reason: PAIN - MODERATE Sodium Chloride (Ns 0.9% 1000 Ml) 1,000 mls @ 75 mls/hr IV PER RATE [facility] Last Admin: 07/30/19 05:11 Dose: 75 mls/hr Lansoprazole (Prevacid Solutab*) 30 mg PO BEDTIME [facility] Vital Signs - 8 hr 07/30/19 07/30/19 07:15 11:15 Temperature 100.6 F 97.4 F Pulse Rate 76 76 Respiratory 18 18 Rate Blood Pressure 93/48 110/75 (mmHg) O2 Sat by Pulse 99 99 Oximetry Oxygen Devices in Use Now: None Exam: Appearance: Well-appearing, Well-nourished, not in acute distress Skin: Warm, dry, no obvious rash Eyes: sclera anicteric, no conjunctival pallor ENT: mucous membranes moist, pharynx appears normal Neck: Supple, nontender Respiratory: Clear to auscultation, no signs of respiratory distress Cardiovascular: Normal S1, S2. No murmurs. Normal distal pulses in tibial and radial bilaterally. Abdomen: Soft, focal tenderness at RUQ and epiastrium, No rebound tenderness and negative Chen sign. normal active bowel sounds present Musculoskeletal: Normal, Strength/ROM Intact Neurological: A&Ox3, awake and alert, mentation is normal, speech is fluent and appropriate Psychiatric: affect is normal, does not appear anxious or depressed Result Diagrams: 07/30/19 05:07 07/30/19 05:08 Assess/Plan/Problems-Billing Assessment: 44 y/o F with history of PUD presents with acute abdominal pain and vomiting. Found to have epigastric and RUQ tenderness, leucocytosis and mild AST elevation. Imaging negative for cholelithiasis; Ct shows mild cholecystitis. D/D - CHolecystitis, PUD, GERD. HIDA scan negative for cholecystitis. - Patient Problems (1) Abdominal pain Current Visit: Yes Status: Acute Code(s): R10.9 - UNSPECIFIED ABDOMINAL PAIN SNOMED Code(s): 34460145 Comment: -has epigastric discomfort for more than a month- seeing Dr. Drummond for PUD. improved after PPI and Carafete. 1 week ago again developed pain and started taking PPI again but without much relief. Yesterday started having acute pain after dinner which was constant in nature and aching type. associated with 1 episode of vomiting. -has mild tenderness on RUQ and epigastrium; no chen sign -could be from PUD or cholecystitis. -lipase negative. -US, Ct and HIDA negative for cholelithiasis -Surgery following -consulting GI- talked to Dr. Crowe; will see patient; may need endoscope; more likely as an oupatient; defer to GI -On Pantoprazole 40 mg BID IV -on clear liquid diet; will advance as tolerated (2) Peptic ulcer disease Current Visit: Yes Status: Acute Code(s): K27.9 - PEPTIC ULC, SITE UNSP, UNSP AC OR CHR, W/O HEMOR OR PERF SNOMED Code(s): 10959704 Comment: -EGD done in 2017- showed esophageal ulcer -negative for eosinophilic esophagitis -following Dr. Drummond -was on PPI -will give her IV pantoprazole bid; discussed with Dr. crowe; he will follow (3) DVT prophylaxis Current Visit: Yes Status: Acute Code(s): Z29.9 - ENCOUNTER FOR PROPHYLACTIC MEASURES, UNSPECIFIED SNOMED Code(s): 630784470 Comment: -On heparin (4) Full code status Current Visit: Yes Status: Acute Code(s): Z78.9 - OTHER SPECIFIED HEALTH STATUS SNOMED Code(s): 199798290 Status and Disposition: Inpatient GI, Surgery following Attending: Mireya Montgomery Attestation Documenting Resident: Miguel Garcia Supervising Physician: Mireya Montgomery Attending/Supervising Physician Comment: 44F PMH PUD presented with post pandrial RUQ pain, found to have distended gallbladder admittd for r/o cholecystitis vs biliary colic vs PUD -HIDA neg, possibly all underlying PUD, GI consulted who felt conservative mgmt. appropriate, stable for d/c to home if tolerates diet Attestation: This service has been performed in part by a resident under the direction of a teaching physician.IMireya, performed the service, or was physically present during the critical, or he portions of the service, furnished by the resident. I participated in the management of the patient.
--- NOTE | 2019-07-30 15:28 | CONS ---
CC: Tuan Rolon MD; Davin Drummond MD CONSULTATION REPORT: DATE OF CONSULT: 07/30/19 REASON FOR CONSULTATION: Possible cholecystitis. HISTORY OF PRESENT ILLNESS: The patient is a 44-year-old female who presented to [facility] Emergency Room with epigastric and right upper quadrant abdominal pain with radiation to her back. Her history is significant for a longstanding history of esophageal stricture and she is status post multiple endoscopies and dilation since she was a teenager. She reports that she also had a history of lower esophageal ulcer 2 years ago for which she was endoscoped on 2 occasions and treated with a proton pump inhibitor. She reports that approximately a month ago, she has began to have symptoms that were similar to those that she had when she had her esophageal ulcer and she contacted Dr. 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 She was instructed to resume taking her PPI, which she did with subsequent improvement of her symptoms within 4 weeks; however, she stopped taking the medications. That was 3-4 days ago. Last night after eating Sami food, she had severe pain in the epigastrium/RUQ with radiation to her back. She had episodes of nausea and vomiting with constant pain. She had presented to the emergency room where she was evaluated for possible cholecystitis. An ultrasound was performed and this did not reveal gallstones or evidence of acute cholecystitis. The patient then underwent CT scan of the abdomen and pelvis and this again did not demonstrate any gallstones, but there was more concern that her gallbladder was "indurated" and therefore, she was admitted to the hospitalist service for additional workup. She reports no fevers or chills. PAST MEDICAL HISTORY: Significant for "a twisted esophagus," esophageal stricture, GERD with esophagitis. PAST SURGICAL HISTORY: Multiple endoscopies and wisdom tooth extraction. MEDICATIONS: 1. Prevacid. 2. Ventolin inhaler. 3. Probiotics. 4. Flovent inhaler. 5. [place] seed extract. ALLERGIES: PENICILLIN causes nausea. FAMILY HISTORY: Reviewed and noncontributory. SOCIAL HISTORY: Former smoker and uses alcohol. REVIEW OF SYSTEMS: Significant for the above. Otherwise, 14-point review was negative. PHYSICAL EXAMINATION: Temperature of 100.6, pulse 76, respirations 18, O2 sat 99%, blood pressure 93/48. General: Well appearing, well developed and well nourished, no acute distress. HEENT: Sclerae anicteric. Mucous membranes are moist. Normocephalic, atraumatic. Lungs: Clear to auscultation bilaterally. Heart: Regular S1, S2. Abdomen: Bowel sounds present, mild diffuse tenderness in the upper abdomen to light and deep palpation. No Chen's sign. No palpable hepatosplenomegaly and no masses or hernias appreciated. DIAGNOSTIC STUDIES/LAB DATA: WBCs were elevated at 13.6 down from 16.1 on admission. Hemoglobin, hematocrit, and platelet count were normal. Chemistries : Normal electrolytes. Total bili normal. Mildly elevated AST with normal ALT and alk phos. Gallbladder ultrasound as well as CT scan imaging was reviewed. IMPRESSION: A 44-year-old female with complex history of gastroesophageal reflux disease with esophagitis and esophageal stricture. Now presenting with epigastric/right upper quadrant pain radiating into her back, suspicious for biliary colic versus acalculous cholecystitis. PLAN/RECOMMENDATIONS: I discussed the findings with the patient. I recommended that she complete a HIDA scan to assess for cystic duct obstruction. Should her findings be positive, then recommendation would be for laparoscopic cholecystectomy. This could be done on a short term outpatient basis depending on her symptomatology. If her HIDA scan is negative, then additional GI evaluation would be of benefit. Would defer endoscopy to GI. [facility] will follow with you. [id number]/[place] #: [id number] FRANCHESCA
--- NOTE | 2019-07-30 15:44 | CONS ---
GASTROENTEROLOGY CONSULT: DATE OF CONSULT: 07/30/19 CONSULTING PHYSICIANS: Dr. Mireya Montgomery, Dr. Tuan Rolon, Dr. Davin Drummond. REASON FOR CONSULT: Abrupt abdominal pain shortly after dinner last night. HISTORY: This 44-year-old woman has a longstanding history of intermittant solid food dysphagia with some epigastric pain and last had EGD June 2017. There has been suspicion of eosinophilic esophagitis though it has not been confirmed on biopsy twice in 2017. Last night after dinner she developed for the first time pain in the epigastrium, that radiated to the right upper quadrant and back. In recent months she had a recurrence of the pains familiar to her, but has never before had the pain radiate to the other 2 sites. She has been admitted, placed n.p.o., had a surgical consult from Dr. Oconnell and then a HIDA scan this noontime which was negative. At this time 2 p.m., she is feeling a little better, willing to try something by mouth. In [address] Drummond complaining of trouble swallowing and epigastric pain. Upper endoscopy showed a nasty looking ulcer at the EG junction, which was quite narrow and only a pediatric scope could get through. It was felt she had ibuprofen get stuck in a preexisting stricture there from time to time. She has headaches and was taking lots of ibuprofen. She has now converted over to Tylenol. She was placed on Prevacid and Carafate then and 6 weeks later the esophagus looked much better, and apparently did not look all that stenotic. She was not formally dilated and she was satisfied as her swallowing then was back to its normal pattern which she accepts as giving her trouble "from time to time." She then at some point went off the Prevacid and Carafate until earlier this fall when she began having the epigastric pain again. It was not radiating. She called in to the office and was started back on Carafate and Prevacid. As she was not sure what might have caused the ulcer 2 years ago, she called in further wanting testing for H. pylori and gluten sensitivity and they were done last week and were negative. The Carafate and Prevacid had lapsed around Thanksgiving time and since she was not on NSAIDs that was felt to be okay. Last night after a takeout Danish meal, 30 to 45 minutes later she developed severe epigastric pain that radiated to the right upper quadrant and back. Coming to the emergency room, her white count was up. It is notable that her white count had previously been up when she came to the emergency room 2 days after her first endoscopy. At that time, her ALT and alkaline phosphatase were up a little bit. PAST MEDICAL HISTORY: 1. Chronic headaches and bruxism - she has discussed this with many physicians. She is currently taking Children's chewable Tylenol. 2. Chronic dysphagia - eosinophilic esophagitis has been mentioned (in [place]), although her esophageal biopsy in June 2017 just says esophagitis and no eosinophilia is commented on. It was specifically said not to be present at the first endoscopy here in May 2017. Nonetheless, beginning in teenage years she had been dilated a number of times in the [place] area MEDICATIONS: At home: 1. Prevacid in self-limited courses. 2. Saccharomyces p.r.n. SOCIAL HISTORY: She is from [place] originally. She lives at home with her kids ages 12 and 4. She is a pescatarian by choice. She is a nonsmoker. REVIEW OF SYSTEMS: She says that she was quite bloated and irregular a few months ago when the symptoms started up again. There is no history of anaphylaxis or asthma. She does feel that carrots or celery tend to give her more dysphagia. She will bring things back up about once a month or may be less. She has become inured to this as a baseline status. There is no history of palpitations, syncope, diaphoresis, hemoptysis, rectal bleeding. Two CT scans say uterus absent. PHYSICAL EXAM: She is a healthy-appearing, middle-aged woman, in no overt distress. There is no skin rash. Mucous membranes are normal. She has no adenopathy. Her lungs are clear and heart sounds are regular. Breast and Pelvic Exams: Deferred. The abdomen is mildly overweight, symmetric with normal bowel sounds, soft and nontender. She recalls the surgical abdominal evaluation did make her very tender. Extremities show no edema. LAB DATA: On admission, white count 16.1, hemoglobin 13.1, hematocrit 38, MCV 88. AST 46, ALT 25, alkaline phosphatase 60, bilirubin 0.6, lipase 16. Imaging: Gallbladder ultrasound debatably dilated, though no stones. HIDA scan negative. CT scan interpreted as slight pericystic induration and status post hysterectomy. IMPRESSION: This woman with a history of dysphagia onset in teenage years and with this fall some bloating and nonspecific distress had a somewhat different pattern of symptoms last night. With the radiation to the right side and mild CT finding near the GB It could be a very small gallstone or pebble transiting the system. She actually does not recall going to the emergency room 2 days after her first [place] endoscopy 2 years ago. The ALT spike that occurred then was certainly suspicious for a small gallstone though multiple studies have yet to see one. She has a complex situation, which includes NSAID toxicity a couple of years ago and fortunately she has not been taking them recently. For the moment, she is better and will be allowed to cautiously advance her diet. [id number]/[facility] #: [id number] FRANCHESCA
[2019-07-30 16:13] VITALS: BP 114/66
--- NOTE | 2019-07-30 19:59 | DS ---
CC: Dr. Rolon; Dr. Davin Drummond DISCHARGE SUMMARY: DATE OF ADMISSION: 07/30/19 DATE OF DISCHARGE: 07/30/19 PRIMARY CARE PROVIDER: Dr. Rolon. DISPOSITION AT THE TIME OF DISCHARGE: Stable to be discharged to home. PRIMARY DIAGNOSIS: Abdominal pain likely secondary to peptic ulcer disease. SECONDARY DIAGNOSES: 1. Longstanding history of dysphagia with the suspicion of eosinophilic esophagitis following an out patient GI. 2. NSAID related EG junction ulcer seen in May 2017 with significant history of peptic ulcer dis ease following that. 3. Chronic headaches and bruxism. 4. Status post hysterectomy. MEDICATIONS AT THE TIME OF DISCHARGE: 1. Albuterol 2 puffs inhaled q.4 hours p.r.n. 2. Tylenol with codeine 120 mg/12 mg liquid, 10 mL p.o. q.6 hours p.r.n. 3. [place] seed extract 0.25 teaspoons p.o. daily p.r.n. 4. Fluticasone 4 puffs inhaled b.i.d. 5. Lansoprazole/Prevacid SoluTab 30 mg sublingual daily. 6. Probiotic 250 mg p.o. daily. Medication changes on this hospitalization include: None. HISTORY OF PRESENT ILLNESS AND HOSPITAL COURSE: A 44-year-old female with above past medical history , who presented to the emergency room 30 to 45 minutes after a Arabic takeout meal where she develop ed severe epigastric pain that radiated to the right upper quadrant and back. In the emergency room, her vital signs were stable, but on admission, she had a white count of 16.1, hemoglobin of 13, AST mildly elevated at 46, ALT at 25 and alk phos of 60, bilirubin was 0.6 and lipase was 16. Imaging wa s done in the emergency room that showed a gallbladder that was possibly dilated, though no stones we re seen and the CT scan was interpreted as a slight pericystic induration and status post hysterectom y. The patient was admitted under observation. Her hospital course by problem is as follows: 1. Right upper quadrant and epigastric pain. The differential for this pain is peptic ulcer disease given her complicated history of peptic ulcer disease. Also given the induration seen on the CT sca n, we were concerned about acute cholecystitis as well as coupled with leukocytosis. Furthermore, we considered pancreatitis, although her lipase was negative. HIDA scan was performed on 07/30/19 that was negative for acute cholecystitis and she had no Chen's sign and no stones were seen on both th e gallbladder ultrasound as well as the CT scan thus effectively ruling acute cholecystitis out. It is possible that there was some biliary colic or a small stone or pebble was part of her acute pain, although this was not seen on imaging. Surgery was consulted who recommended that no surgery or surg ical intervention was necessary at this time and she remained largely afebrile where she had a T-max of 100.6, although no temperatures during this hospitalization. White count in the evening of admiss ion on 07/29/19 to 07/30/19 fell from 16 to 13. In regards to peptic ulcer disease, GI was consulted during this hospitalization and upon interview with GI, her symptoms had wholly resolved. They offer ed endoscopy, but given that her symptoms have fully resolved, they did not feel that it was ultimate ly necessary. They recommended trialing diet to see if she could advance without pain. She tolerate d a full meal, with lunch and dinner without complications and was eager to be discharged in followup with Dr. Drummond in the clinic. At this time, it is unclear what the cause of her right upper quadr ant pain. She reports that she has pain like this from time to time. Of note, she had a similar epis ode in May 2017 prior to her discovery of the esophageal ulcer and at that time, her white count was mildly elevated and she also had a small AST bump at that time because GI is not offering scope a nd Surgery did not feel that this was acute cholecystitis. The patient is stable to go home. There i s no acute indication for antibiotics as she is afebrile, she has a mildly elevated white count at 13 , but no other localizing signs or symptoms as she is tolerating diet without any abdominal pain. Rosey irene is counseled to return to the emergency room if she has fever, worsening pain and she is counseled to follow up with Dr. Drummond to talk about re-scoping in the future. Of note, she has complicated a natomy with a very small esophagus and a small tortuous esophagus that requires a pediatric scope to view her anatomy. 2. History of bruxism and chronic headaches. She had no complications with this. 3. Asthma. Her home inhalers were continued. 4. DVT prophylaxis. The patient was kept on none. At the time of discharge, the patient has tolera terese full regular diet without pain or complications. She is ambulating and voiding freely. Physical exam was done on day of discharge is based on the progress note. CONSULTANTS DURING THIS HOSPITALIZATION: Included General Surgery as well as GI. LABS AND STUDIES DONE DURING THIS HOSPITALIZATION: Labs on the day of discharge: White blood cell co unt 13.6, hemoglobin 12.2, hematocrit 35, platelets 262. Sodium 137, potassium 3.8, chloride 109, ca rbon dioxide 22, anion gap 6, BUN 8, creatinine 0.67, glucose 98. Total bilirubin 0.8, AST 43, ALT 2 9, alkaline phosphatase 52, total protein 7, lipase 16. UA is unremarkable. No microbiology was gat hered during this time. Imaging includes HIDA scan on 07/30/19 which shows no evidence of acute cholecystitis or cystic duct obstruction. Abdomen and pelvis CT done on 07/30/19 showed mild hepatomegaly, slight pericholecystic induration wh ich may reflect cholecystitis, but no gallstones were seen, status post hysterectomy, otherwise unrem arkable. CT abdomen and pelvis and gallbladder ultrasound was negative for Chen's sign, did not see gallston es with a borderline distended gallbladder. ITEMS TO FOLLOW UP ON STATUS POST DISCHARGE: Recurrent right upper quadrant pain. This patient repor ts that she has pain like this from time to time and this is most likely related to her complex histo ry of peptic ulcer disease. With known strictures and difficult anatomy that led to erosive esophagi tis in the past. She uses liquid medications to circumvent this and can follow up with Dr. Hoda darling n the future. She is counseled again to return to the emergency room. She has fevers, worsening kate n, or change in symptoms or status, but as of 07/30/19, she is very eager to be discharged and given we have ruled out cholecystitis via HIDA scan and monitoring. There was 24 hours of care at this poi nt and there is no indication from GI standpoint to scope as she is tolerating diet. It is safe to d ischarge her to home at this time. TIME SPENT: Thirty-five minutes was spent on the planning of this discharge with over half of that w as spent directly at the bedside of the patient providing direct patient care and coordinating care. Plan of care discussed with the patient and family, they have no further questions. If there are an y questions about the care of this patient during this hospitalization, please do not hesitate to anil jules out and contact me directly, my cellphone is [phone]. [id number]/[facility] #: [id number]
[2019-07-30] MEDS ORDERED: Pantoprazole IV* 40 MG IV SCH (21:00)
== END 2019-07-30 18:20 | disposition home or self-care (01) ==
LOC: ED 21:30 → MED 07-30 03:43
PROVIDERS: ADMIT Student in an Organized Health Care Education/Training Program; ATTEND Internal Medicine
DX: R10.11 Right upper quadrant pain (principal); K27.9 Peptic ulcer, site unspecified, unspecified as acute or chronic, without hemorrhage or perforation; R13.10 Dysphagia, unspecified; R51 Headache; Z90.710 Acquired absence of both cervix and uterus; Z79.899 Other long term (current) drug therapy; K21.9 Gastro-esophageal reflux disease without esophagitis; Z87.891 Personal history of nicotine dependence
CPT/HCPCS: 36415; 74177; 76705; 78226; 80053; 81003; 81015; 83690; 84702; 85025; 87077; 87086; 96361; 96374; 96375; 99284; A9270-GY; A9537; G0378; J1885; J2270; J2405; Q9967